=== PATIENT | male | born 1965 | race Caucasian/White ===

== ENCOUNTER 2017-06-16 02:33 | Emergency (ER) | payer BC ==
[~2017-06-16] VITALS: Ht 175.3 cm; Wt 88.6 kg
[~2017-06-16 02:33] MED LIST: NO HOME MEDICATIONS; PHENERGAN 25 TA25 MG PO; PROZAC40 MG PO; RELPAX 40MG TAB40 MG PO; WELLBUTRIN XL300 M1 PO
[2017-06-16 03:08] VITALS: BP 117/72; TEMP 97.4
[2017-06-16 03:59] VITALS: PULSE 85
== END 2017-06-16 03:59 | disposition home or self-care (01) ==
LOC: COL.ER 02:33
DX: G43.909 Migraine, unspecified, not intractable, without status migrainosus (principal)
CPT/HCPCS: J0780; J1200; J7030

== ENCOUNTER → 2023-02-20 | Outpatient (CLI) | payer BC | LOC: COL.RAD 12:01 | DX: K40.90 Unilateral inguinal hernia, without obstruction or gangrene, not specified as recurrent (principal); K76.0 Fatty (change of) liver, not elsewhere classified; Z90.5 Acquired absence of kidney ==

== ENCOUNTER 2023-03-12 10:34 | Day surgery (SDC) | payer BC ==
[~2023-03-12] VITALS: Ht 175.3 cm; Wt 85.5 kg
[2023-03-12] MEDS ORDERED: ZYLOPRIM 100MG100 MG PO (11:17)
[2023-03-12 11:30] VITALS: BP 131/91; PULSE 79; TEMP 98.4
[2023-03-12] MEDS ORDERED: NORCO 325 MG-51 TAB PO (14:28)
[2023-03-12] MEDS ORDERED: MOTRIN 600600 MG/TAB PO (14:28)
[2023-03-12 15:00] VITALS: BP 119/89; PULSE 78; TEMP 97.6
[2023-03-12 15:09] VITALS: TEMP 97.4
[2023-03-12 15:15] VITALS: BP 124/76; PULSE 78
[2023-03-12 15:30] VITALS: BP 119/66; PULSE 74
[2023-03-12 15:40] VITALS: BP 119/82; PULSE 76
--- NOTE | 2023-03-12 15:50 | NUR ---
1500 RETURNS TO ROOM 6 PER CART. AWAKE, ALERT. RESP UNLABORED. HOB ELEVATED 45 DEGREES. ABD SOFT, INCISION X 3 SITES INTACT WITHOUT REDNESS OR DRAINAGE. DENIES PAIN. VITAL SIGNS OBTAINED. CALL LIGHT AT SIDE. IN ROOM 1515 TOLERATES PO JUICE AND MUFFIN WITHOUT NAUSEA. 1520 DISCHARGE INSTRUCTIONS REVIEWED. PATIENT VERBALIZES UNDERSTANDING. COPY PROVIDED IN DISCHARGE FOLDER. 1535 IV DC'D 1540 SITS ON EDGE OF CART. DRESSES SELF, THEN AMBULATES TO BATHROOM WITH STANDBY ASSIST. ADMITS TO VOIDING WITHOUT DIFFICULTY
== END 2023-03-12 15:50 | disposition home or self-care (01) ==
LOC: SDCO 10:34
DX: K40.90 Unilateral inguinal hernia, without obstruction or gangrene, not specified as recurrent (principal)
CPT/HCPCS: C1781; J0690; J2405; J2704; J3010; J7120